=== PATIENT | female | born 1955 | race Hispanic/Latino ===

== ENCOUNTER 2019-02-04 23:19 | Emergency (ER) | payer OTHER ==
[2019-02-05 00:02] LABS: Absolute Lymphocytes (CBC) 2.8 K/uL (0.7-4.9); Basophils % 0.9 % (0-1.3); Hematocrit 40.2 % (36.0-45.0); Lymphocytes % 32.3 % (15.3-44.8); MPV 8.3 fL (7.6-11.3); Protime INR 0.99; RBC Red Blood Cell Count 4.61 M/uL (3.86-4.86)
[2019-02-05 00:16] LABS: ALT/SGPT 135 U/L (12-78); AST/SGOT 83 U/L (15-37); Albumin 3.9 g/dL (3.4-5.0); Alkaline Phosphatase 113 U/L (45-117); BUN Blood Urea Nitrogen 18 mg/dL (7-18); Bicarbonate 28 mmol/L (21-32); Bilirubin Direct 0.1 mg/dL (0-0.2); Bilirubin Total 0.3 mg/dL (0.2-1.0); Glucose Level 94 mg/dL (74-106); Magnesium 2.2 mg/dL (1.8-2.4); NT PRO-BNP 122 pg/mL (<125); Potassium 3.5 mmol/L (3.5-5.1); Protein, Total 8.3 g/dL (6.4-8.2); Sodium Level 141 mmol/L (136-145); Troponin (Emerg Dept Use Only) < 0.02 ng/mL (0.0-0.045)
--- NOTE | 2019-02-05 02:48 | ER ---
Nurse's Notes [facility] Name: Pamela Martinez Age: 63 yrs Sex: Female : 1955 Arrival Date: 02/04/2019 Time: 23:21 Bed 19 Private MD: Diagnosis: Chest pain, unspecified;Epigastric pain Presentation: 02/04 23:41 Presenting complaint: Patient states: Headache to top of head and chest pressure. We are traveling today from [place]. it started this evening around 1730, getting worse. Transition of care: patient was not received from another setting of care. Onset of symptoms was February 04, 2019 at 17:30. Risk Assessment: Do you want to hurt yourself or someone else? Patient reports no desire to harm self or others. Initial Sepsis Screen: Does the patient meet any 2 criteria? No. Patient's initial sepsis screen is negative. Does the patient have a suspected source of infection? No. Patient's initial sepsis screen is negative. Care prior to arrival: None. 23:41 Method Of Arrival: Ambulatory 23:41 Acuity: JOSE 3 Triage Assessment: 23:44 General: Appears in no apparent distress. uncomfortable, Behavior is calm, cooperative, ch appropriate for age. Pain: Complains of pain in top of head and chest Pain does not radiate. Pain currently is 3 out of 10 on a pain scale. Neuro: No deficits noted. Level of Consciousness is awake, alert, obeys commands, Oriented to person, place, time, situation, Evp Managing Director are equal bilaterally Moves all extremities. Full function Gait is steady, Speech is normal, Facial symmetry appears normal, Facial symmetry: tongue is midline, Pupils are PERRLA, Reports headache. Cardiovascular: Reports chest pain, since 1729, describes as pressure. Heart tones S1 S2 present Capillary refill < 3 seconds in bilateral fingers toes Clubbing of nail beds is absent Patient's skin is warm and dry. Pulses are all present. Edema is absent. Rhythm is sinus rhythm. Respiratory: Airway is patent Respiratory effort is even, unlabored. GI: No signs and/or symptoms were reported involving the gastrointestinal system. : No signs and/or symptoms were reported regarding the genitourinary system. Musculoskeletal: Circulation, motion, and sensation intact. Capillary refill < 3 seconds. Historical: - Allergies: 23:44 Codeine; ch - Home Meds: 02/05 01:17 colesevelam oral oral 1 packet once daily [Active]; losartan-hydrochlorothiazide ch 50-12.5 mg Oral tab 1 tab once daily [Active]; prednisone 5 mg Oral tab once daily [Active]; - PMHx: 02/04 23:44 Hypertension; fatty liver; Bronchitis; ch 02/05 01:17 Arthritis; ch - PSHx: 02/04 23:44 ; Hysterectomy; Knee surgery; ankle; ch - Immunization history:: Adult Immunizations up to date. - Social history:: Smoking status: Patient/guardian denies using tobacco, Patient uses caffeine, Patient/guardian denies using alcohol, street drugs. - Ebola Screening: : Patient negative for fever greater than or equal to 101.5 degrees Fahrenheit, and additional compatible Ebola Virus Disease symptoms Patient denies exposure to infectious person Patient denies travel to an Ebola-affected area in the 21 days before illness onset No symptoms or risks identified at this time. Screenin:46 Abuse screen: Denies threats or abuse. Denies injuries from another. Nutritional ch screening: No deficits noted. Tuberculosis screening: No symptoms or risk factors identified. Fall Risk None identified. Assessment: 23:46 Reassessment: Patient appears in no apparent distress at this time. No changes from previously documented assessment. Patient and/or family updated on plan of care and expected duration. Pain level reassessed. Patient is alert, oriented x 3, equal unlabored respirations, skin warm/dry/pink. 23:50 General: Appears in no apparent distress. comfortable, Behavior is calm, cooperative, ch appropriate for age. Pain: Denies pain. Pain: Denies pain. Pain began gradually. 23:55 Pain: Denies pain. Complains of pain in chest and top of head and head Pain currently ch is 0 out of 10 on a pain scale. at worst was 3 out of 10 on a pain scale. Quality of pain is described as pressure, Pain began gradually, Is continuous, Alleviated by rest. 02/05 00:40 General: Appears in no apparent distress. comfortable, Behavior is calm, cooperative, ch appropriate for age. Neuro: No deficits noted. Respiratory: Airway is patent Respiratory effort is even, unlabored, Breath sounds are clear bilaterally. 01:40 Reassessment: Patient appears in no apparent distress at this time. Patient and/or family updated on plan of care and expected duration. Pain level reassessed. Patient is alert, oriented x 3, equal unlabored respirations, skin warm/dry/pink. Patient states feeling better. Patient states symptoms have improved. 02:40 Reassessment: Patient appears in no apparent distress at this time. No changes from previously documented assessment. Patient and/or family updated on plan of care and expected duration. Pain level reassessed. Patient is alert, oriented x 3, equal unlabored respirations, skin warm/dry/pink. Vital Signs: 02/04 23:44 BP 173 / 89; Pulse 63; Resp 16; Pulse Ox 100% on R/A; Pain 3/10; 23:46 Weight 74.39 kg; Height 5 ft. (152.40 cm); 02/05 00:45 BP 144 / 86; Pulse 61; Resp 18; Temp 98.1; Pulse Ox 99% on R/A; Pain 2/10; 01:43 BP 150 / 80; Pulse 65; Resp 16; Temp 98.8; Pulse Ox 99% on R/A; Pain 1/10; 03:27 BP 149 / 81; Pulse 64; Resp 18; Temp 97.8; Pulse Ox 99% on R/A; Pain 0/10; ch 02/04 23:46 Body Mass Index 32.03 (74.39 kg, 152.40 cm) ED Course: 02/04 23:21 Patient arrived in ED. es 23:23 Ho Mast MD is Attending Physician. kdr 23:38 Inserted saline lock: 20 gauge in left antecubital area, using aseptic technique. Blood mt collected. 23:41 Kierra Storey, VERONIKA is Primary Nurse. 23:43 Triage completed. 23:44 Arm band placed on left wrist. Patient placed in an exam room, on a stretcher, on diagnostic cardiac sonographer, on pulse oximetry. 23:46 No provider procedures requiring assistance completed. Initial lab(s) drawn, by ED staff, sent to lab. 23:46 Patient has correct armband on for positive identification. Bed in low position. Call light in reach. Side rails up X 1. Adult w/ patient. personnel monitor on. Pulse ox on. NIBP on. 23:50 XRAY Chest (1 view) In Process Unspecified. EDMS 02/05 00:45 Patient maintains SpO2 saturation greater than 95% on room air. ch 01:43 Troponin (emerg Dept Use Only) Sent. ch 01:43 Basic Metabolic Panel Sent. ch 01:43 CBC with Diff Sent. ch 02:40 No apparent distress. Resting quietly. ch 02:40 IV discontinued, intact, bleeding controlled, No redness/swelling at site. Pressure ch dressing applied. Administered Medications: 03:15 Drug: Pepcid 20 mg Route: PO; ch 04:34 Follow up: Response: No adverse reaction; Medication administered at discharge. ch Outcome: 02:47 Discharge ordered by . kdr 03:00 Discharged to home ambulatory, with family. ch 03:00 Condition: improved 03:00 Discharge instructions given to patient, family, Instructed on discharge instructions, follow up and referral plans. medication usage, Demonstrated understanding of instructions, follow-up care, medications, Prescriptions given X 1. 03:47 Patient left the ED. Signatures: Dispatcher [employer] EDKierra Sifuentes, VERONIKA RN Ho Mast MD MD kdr Salyer, Edna es Thompson, [facility]
--- NOTE | 2019-02-05 02:48 | EDPHYS ---
Physician Documentation [facility] Name: Pamela Martinez Age: 63 yrs Sex: Female : 1955 Arrival Date: 02/04/2019 Time: 23:21 Bed 19 Private MD: ED Physician Ho Mast HPI: 02/05 06:02 This 63 yrs old Female presents to ER via Ambulatory with complaints of Chest kdr Pain. 06:02 The patient or guardian reports chest pain that is located primarily in the substernal kdr area, epigastric area. Onset: just prior to arrival, today. The pain does not radiate. Associated signs and symptoms: Pertinent positives: abdominal pain, nausea, Pertinent negatives: dizziness, headache, lower extremity pain, lower extremity swelling, lightheadedness, recent travel, shortness of breath, syncope, Minor VALDEZ. The chest pain is described as burning, dull. Duration: The patient or guardian reports a single episode, that is still ongoing, but improving. Modifying factors: The symptoms are alleviated by nothing. the symptoms are aggravated by activity. Severity of pain: At its worst the pain was mild moderate. The patient has not experienced similar symptoms in the past. Historical: - Allergies: 02/04 23:44 Codeine; ch - Home Meds: 02/05 01:17 colesevelam oral oral 1 packet once daily [Active]; losartan-hydrochlorothiazide ch 50-12.5 mg Oral tab 1 tab once daily [Active]; prednisone 5 mg Oral tab once daily [Active]; - PMHx: 02/04 23:44 Hypertension; fatty liver; Bronchitis; ch 02/05 01:17 Arthritis; ch - PSHx: 02/04 23:44 ; Hysterectomy; Knee surgery; ankle; ch - Immunization history:: Adult Immunizations up to date. - Social history:: Smoking status: Patient/guardian denies using tobacco, Patient uses caffeine, Patient/guardian denies using alcohol, street drugs. - Ebola Screening: : Patient negative for fever greater than or equal to 101.5 degrees Fahrenheit, and additional compatible Ebola Virus Disease symptoms Patient denies exposure to infectious person Patient denies travel to an Ebola-affected area in the 21 days before illness onset No symptoms or risks identified at this time. ROS: 02/05 06:02 Constitutional: Negative for fever, chills, and weight loss, Eyes: Negative for injury, kdr pain, redness, and discharge, ENT: Negative for injury, pain, and discharge, Neck: Negative for injury, pain, and swelling, Respiratory: Negative for shortness of breath, cough, wheezing, and pleuritic chest pain, Back: Negative for injury and pain, : Negative for injury, bleeding, discharge, and swelling, MS/Extremity: Negative for injury and deformity, Skin: Negative for injury, rash, and discoloration, Neuro: Negative for headache, weakness, numbness, tingling, and seizure activity. Psych: Negative for depression, anxiety, suicide ideation, homicidal ideation, and hallucinations, Allergy/Immunology: Negative for hives, rash, and allergies, Endocrine: Negative for neck swelling, polydipsia, polyuria, polyphagia, and marked weight changes, Hematologic/Lymphatic: Negative for swollen nodes, abnormal bleeding, and unusual bruising. Cardiovascular: Positive for chest pain, Negative for edema, orthopnea, palpitations, paroxysmal nocturnal dyspnea. Abdomen/GI: Positive for abdominal pain, nausea, of the epigastric area, Negative for vomiting, diarrhea, constipation, abdominal cramps, abdominal distension, anorexia, dysphagia, hematemesis, black/tarry stool, rectal pain, rectal bleeding. Exam: 06:02 Constitutional: This is a well developed, well nourished patient who is awake, alert, kdr and in no acute distress. Head/Face: Normocephalic, atraumatic. Eyes: Pupils equal round and reactive to light, extra-ocular motions intact. Lids and lashes normal. Conjunctiva and sclera are non-icteric and not injected. Cornea within normal limits. Periorbital areas with no swelling, redness, or edema. Neck: Trachea midline, no thyromegaly or masses palpated, and no cervical lymphadenopathy. Supple, full range of motion without nuchal rigidity, or vertebral point tenderness. No Meningismus. Chest/axilla: Normal chest wall appearance and motion. Nontender with no deformity. No lesions are appreciated. Cardiovascular: Regular rate and rhythm with a normal S1 and S2. No gallops, murmurs, or rubs. Normal PMI, no JVD. No pulse deficits. Respiratory: Lungs have equal breath sounds bilaterally, clear to auscultation and percussion. No rales, rhonchi or wheezes noted. No increased work of breathing, no retractions or nasal flaring. Back: No spinal tenderness. No costovertebral tenderness. Full range of motion. Skin: Warm, dry with normal turgor. Normal color with no rashes, no lesions, and no evidence of cellulitis. MS/ Extremity: Pulses equal, no cyanosis. Neurovascular intact. Full, normal range of motion. Neuro: Awake and alert, GCS 15, oriented to person, place, time, and situation. Cranial nerves II-XII grossly intact. Motor strength 5/5 in all extremities. Sensory grossly intact. Cerebellar exam normal. Normal gait. Psych: Awake, alert, with orientation to person, place and time. Behavior, mood, and affect are within normal limits. 06:02 Abdomen/GI: Inspection: abdomen appears normal, Bowel sounds: normal, Palpation: soft, mild abdominal tenderness, in the epigastric area. Vital Signs: 02/04 23:44 BP 173 / 89; Pulse 63; Resp 16; Pulse Ox 100% on R/A; Pain 3/10; ch 23:46 Weight 74.39 kg; Height 5 ft. (152.40 cm); ch 02/05 00:45 BP 144 / 86; Pulse 61; Resp 18; Temp 98.1; Pulse Ox 99% on R/A; Pain 2/10; ch 01:43 BP 150 / 80; Pulse 65; Resp 16; Temp 98.8; Pulse Ox 99% on R/A; Pain 1/10; ch 03:27 BP 149 / 81; Pulse 64; Resp 18; Temp 97.8; Pulse Ox 99% on R/A; Pain 0/10; ch 02/04 23:46 Body Mass Index 32.03 (74.39 kg, 152.40 cm) ch MDM: 02:47 Patient medically screened. kdr 06:02 Data reviewed: vital signs, nurses notes, lab test result(s), radiologic studies. kdr 02/04 23:24 Order name: Basic Metabolic Panel 02/04 23:24 Order name: CBC with Diff 02/04 23:24 Order name: LFT's; Complete Time: : 02/04 23:24 Order name: Magnesium; Complete Time: : 02/04 23:24 Order name: NT PRO-BNP; Complete Time: :14 02/04 23:24 Order name: PT-INR; Complete Time: 01:14 02/04 23:24 Order name: Troponin (emerg Dept Use Only); Complete Time: 01:14 02/04 23:24 Order name: XRAY Chest (1 view) 02/04 23:24 Order name: EKG; Complete Time: 23:25 02/04 23:24 Order name: Cardiac monitoring; Complete Time: 23:38 02/04 23:24 Order name: Basic Metabolic Panel; Complete Time: 01:14 [facility] 02/04 23:24 Order name: CBC with Automated Diff; Complete Time: 01:14 [facility] 02/05 01:15 Order name: Troponin (emerg Dept Use Only); Complete Time: 02:45 02/04 23:24 Order name: EKG - Nurse/Tech; Complete Time: 23:38 02/04 23:24 Order name: IV Saline Lock; Complete Time: 23:38 02/04 23:24 Order name: Labs collected and sent; Complete Time: 23:38 02/04 23:24 Order name: O2 Per Protocol; Complete Time: 23:38 02/04 23:24 Order name: O2 Sat Monitoring; Complete Time: 23:38 gs Administered Medications: 03:15 Drug: Pepcid 20 mg Route: PO; 04:34 Follow up: Response: No adverse reaction; Medication administered at discharge. Disposition: 02/05/19 02:47 Discharged to Home. Impression: Chest pain, unspecified, Epigastric pain. - Condition is Stable. - Discharge Instructions: Pain Without a Known Cause, Abdominal Pain, Adult, [id number], Nonspecific Chest Pain, [id number]. - Prescriptions for Pepcid 20 mg Oral Tablet - take 1 tablet by ORAL route every 12 hours for 5 days; 10 tablet. - Medication Reconciliation Form, Thank You Letter form. - Follow up: Private Physician; When: 2 - 3 days; Reason: If symptoms return, Further diagnostic work-up, Recheck today's complaints, Continuance of care, Re-evaluation by your physician. - Problem is new. - Symptoms have improved. Signatures: Dispatcher [employer] EDMS Kierra tSorey RN RN Ho Mast MD MD kdr Starr, Gregory, MD MD gs Corrections: (The following items were deleted from the chart) 03:47 02:47 02/05/2019 02:47 Discharged to Home. Impression: Chest pain, unspecified; ch Epigastric pain. Condition is Stable. Forms are Medication Reconciliation Form, Thank You Letter, Antibiotic Education, Prescription Opioid Use. Follow up: Private Physician; When: 2 - 3 days; Reason: If symptoms return, Further diagnostic work-up, Recheck today's complaints, Continuance of care, Re-evaluation by your physician. Problem is new. Symptoms have improved. kdr
[2019-02-05] MEDS ORDERED: FAMOTIDINE 20 MG TAB ONE (03:15)
[2019-02-05 04:48] VITALS: O2SAT 99
[2019-02-05 04:51] VITALS: BP 149/81; TEMP 97.8
--- NOTE | 2019-02-05 07:43 | RAD REPORT ---
EXAM DESCRIPTION: Yen Single View02/04/2019 11:49 pm CLINICAL HISTORY: Chest pain COMPARISON: 2010 FINDINGS: The lungs appear clear of acute infiltrate. The heart is borderline enlarged IMPRESSION: No acute abnormalities displayed
--- NOTE | 2019-02-05 12:54 | EKG ---
Test Date: 2019-02-04 Test Time: 23:31:25 [employer]: [employer] MEASUREMENT RESULTS: Intervals: Rate: 70 WI: 146 QRSD: 94 QT: 402 QTc: 434 [place]: P: 52 WI: 146 QRS: 133 T: 56 INTERPRETIVE STATEMENTS: Normal sinus rhythm vertical axis Abnormal ECG Compared to ECG 04/26/2015 17:56:37 T-wave abnormality no longer present Electronically Signed On 02-05-19 12:53:54 CDT by Orlando Ferguson
== END 2019-02-05 03:47 | disposition home or self-care (01) ==
LOC: ER 23:19
DX: R07.9 Chest pain, unspecified (principal); R10.13 Epigastric pain; I10 Essential (primary) hypertension; Z88.6 Allergy status to analgesic agent
CPT/HCPCS: 36415; 71045; 80048; 80076; 83735; 83880; 84484; 85025; 85610; 93005; 99285